=== PATIENT | female | born 1950 | race Caucasian/White ===

== ENCOUNTER 2016-09-27 15:56 | Emergency (ER) | payer MEDICARE, OTHER ==
[~2016-09-27 15:56] MED LIST: ASPIRIN81 MG; AZOR 5/40 MG TA1 TAB; BENICAR40 MG; CALCIUM + D T1 UDTAB; COLACE100 MG; ESTRA; FIBER0.52 G; FIBERCON625 MG; FOSAMAX PLUS D1 TAB; MOTRIN IB200 MG; MUCINEX600 MG; NORVASC5 MG; OMEGA 31 CAP; PREMARIN42.5 GM; PRILOSEC20 MG; VITAMIN D3; ZETIA10 MG; ZOCOR10 MG
[2016-09-27] MEDS ORDERED: PROTONIX40 M2 PO (16:30)
[2016-09-27] MEDS ORDERED: DIOVAN HCT 1601 EAC1 PO (16:30)
[2016-09-27] MEDS ORDERED: PRIMIDONE50 M1 PO (16:31)
[2016-09-27] MEDS ORDERED: GLUCOPHAGE500 M3 PO (16:31)
[2016-09-27] MEDS ORDERED: SINEMET 25-1001 EAC1 PO (16:32)
[2016-09-27] MEDS ORDERED: ZOCOR20 M1 PO (16:32)
[2016-09-27] MEDS ORDERED: LAMICTAL200 M2 PO (16:33)
[2016-09-27] MEDS ORDERED: INDERAL XL120 MG PO (16:33)
[2016-09-27] MEDS ORDERED: CELEXA10 M1 PO (16:34)
[2016-09-27] MEDS ORDERED: ESTRACE42.5 G1 PV (16:36)
[2016-09-27] MEDS ORDERED: VITAMIN D31000 UNI3 PO (16:36)
[2016-09-27] MEDS ORDERED: PROBIOTIC1 EA10 PO (16:37)
[2016-09-27] MEDS ORDERED: ALLERGY RELIEF10 M4 PO (16:38)
[2016-09-27] MEDS ORDERED: OMEGA 3 1,0001 EAC1 PO (16:38)
[2016-09-27] MEDS ORDERED: VIACTIV SOFT C1 EAC1 PO (16:38)
[2016-09-27] MEDS ORDERED: ASPIRIN EC81 MG PO (16:39)
[2016-09-27] MEDS ORDERED: TYLENOL325 M2 PO (16:39)
[2016-09-27] MEDS ORDERED: MAGNESIUM OXID400 M1 PO (16:40)
[2016-09-27] MEDS ORDERED: MUCINEX DM ER1 EAC1 PO (16:41)
[2016-09-27] MEDS ORDERED: ZITHROMAX250 M1 PO (17:33)
[2016-09-27 17:38] LABS: URINE BILIRUBIN NEGATIVE (NEG); URINE BLOOD NEGATIVE (NEG); URINE GLUCOSE (UA) NEGATIVE (NEG); URINE KETONE NEGATIVE (NEG); URINE LEUKOCYTE ESTERASE POSITIVE (NEG); URINE NITRITE NEGATIVE (NEG); URINE PROTEIN NEGATIVE (NEG)
[2016-09-27 17:43] LABS: URINE APPEARANCE CLEAR; URINE COLOR YELLOW
[2016-09-27 17:59] LABS: URINE RBC 0-1 /[HPF] (0-5)
== END 2016-09-27 18:23 ==
LOC: EDMED 15:56
PROVIDERS: Emergency Medicine
DX: J18.9 Pneumonia, unspecified organism (principal); J06.9 Acute upper respiratory infection, unspecified; R91.1 Solitary pulmonary nodule; E11.9 Type 2 diabetes mellitus without complications; I10 Essential (primary) hypertension; E78.5 Hyperlipidemia, unspecified; Z79.82 Long term (current) use of aspirin; Z79.899 Other long term (current) drug therapy